=== PATIENT | male | born 2000 | race Caucasian/White ===

== ENCOUNTER 2020-11-23 11:26 | Emergency (ER) | payer MEDICAID ==
[~2020-11-23] VITALS: Ht 172.7 cm; Wt 54.4 kg
--- NOTE | 2020-11-23 11:27 | NUR ---
Patient BIBA BLS, transferred to bed 9. RN evaluating the patient at bedside.
[2020-11-23 11:28] VITALS: BP 132/84
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
--- NOTE | 2020-11-23 11:58 | NUR ---
Dr. Spencer at the bedside evaluating patient.
[2020-11-23] MEDS: CYCLOBENZAPRINE 10 MG TAB PO ONE (12:40)
[2020-11-23] MEDS: KETOROLAC 30 MG/ML VIAL IM ONE (12:40)
[2020-11-23] MEDS: ACETAMINOPHEN EXTRA STRENGTH 500 MG TAB PO ONE (12:40)
[2020-11-23] MEDS ORDERED: CYCL-654 PO (12:56)
[2020-11-23] MEDS ORDERED: IBUP-2213 PO (12:56)
[2020-11-23 13:11] VITALS: BP 132/84
--- NOTE | 2020-11-23 13:11 | NUR ---
Patient discharged with v/s stable. Written and verbal after care instructions given and explained. Patient alert, oriented and verbalized understanding of instructions. Ambulatory with steady gait. All questions addressed prior to discharge. ID band removed. Patient advised to follow up with PMD. Rx of cyclobenzaprine hcl, ibuprofen given. Patient educated on indication of medication including possible reaction and side effects. Opportunity to ask questions provided and answered.
[2020-11-24] MEDS ORDERED: ACET-10509 PO (22:24)
[2020-11-24] MEDS ORDERED: CYCL-711 PO (22:34)
== END 2020-11-23 13:11 | disposition home or self-care (01) ==
LOC: MED 11:26
DX: S50.312A Abrasion of left elbow, initial encounter (principal); S16.1XXA Strain of muscle, fascia and tendon at neck level, initial encounter; R51.9 Headache, unspecified; Z79.899 Other long term (current) drug therapy; V49.69XA Unspecified car occupant injured in collision with other motor vehicles in traffic accident, initial encounter; Y93.89 Activity, other specified; Y92.89 Other specified places as the place of occurrence of the external cause; Y99.8 Other external cause status
CPT/HCPCS: 96372; 99283; J1885

== ENCOUNTER 2020-11-24 20:09 | Emergency (ER) | payer MEDICAID ==
[~2020-11-24] VITALS: Ht 170.2 cm; Wt 55.3 kg
[~2020-11-24 20:09] MED LIST: CYCL-654 PO; IBUP-2213 PO
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
[2020-11-24 20:28] VITALS: BP 139/83
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
--- NOTE | 2020-11-24 20:46 | NUR ---
PT TAKEN TO CT
--- NOTE | 2020-11-24 20:57 | NUR ---
PT RETURN FROM CT
--- NOTE | 2020-11-24 21:09 | NUR ---
Dr. Frias examining patient.
[2020-11-24] MEDS ORDERED: KETOROLAC 30 MG/ML VIAL IM ONE (21:10)
[2020-11-24] MEDS ORDERED: BACITRACIN OINT 500 UNITS/GM PKT TP ONE (21:10)
--- NOTE | 2020-11-24 22:13 | NUR ---
WOUND CARE DONE, DRESSING IN PLACE.
[2020-11-24] MEDS ORDERED: ACET-10509 PO (22:24)
[2020-11-24] MEDS ORDERED: CYCL-711 PO (22:34)
--- NOTE | 2020-11-24 22:40 | NUR ---
Patient discharged with v/s stable. Written and verbal after care instructions given and explained. Patient alert, oriented and verbalized understanding of instructions. Ambulatory with steady gait. All questions addressed prior to discharge. ID band removed. Patient advised to follow up with PMD. Rx of ACETOMINOPHEN given. Patient educated on indication of medication including possible reaction and side effects. Opportunity to ask questions provided and answered.
[2020-11-24 22:42] VITALS: BP 128/86
== END 2020-11-24 22:40 | disposition home or self-care (01) ==
LOC: MED 20:09
DX: S06.0X0A Concussion without loss of consciousness, initial encounter (principal); S16.1XXA Strain of muscle, fascia and tendon at neck level, initial encounter; S50.312A Abrasion of left elbow, initial encounter; J45.909 Unspecified asthma, uncomplicated; Z79.899 Other long term (current) drug therapy; X58.XXXA Exposure to other specified factors, initial encounter; Y93.89 Activity, other specified; Y92.89 Other specified places as the place of occurrence of the external cause; Y99.8 Other external cause status
CPT/HCPCS: 70450; 71045; 72125; 72170; 73070; 96372; 99285; J1885

== ENCOUNTER 2022-08-20 23:14 | Emergency (ER) | payer OTHER ==
[~2022-08-20] VITALS: Ht 170.2 cm; Wt 59.0 kg
[~2022-08-20 23:14] MED LIST changes: +ACET-10509 PO; +CYCL-711 PO
[2022-08-20 23:19] VITALS: BP 120/88
--- NOTE | 2022-08-20 23:23 | NUR ---
PT OFFLOADED TO [facility]
[2022-08-20 23:36] VITALS: BP 136/84
--- NOTE | 2022-08-20 23:44 | NUR ---
Pt taken to RAD for imaging.
[2022-08-21] MEDS: KETOROLAC 15 MG/ML VIAL IM ONE (00:10)
[2022-08-21] MEDS: LIDOCAINE 5% 1 EA PATCH TP ONE (00:11)
[2022-08-21 00:41] LABS: BASOPHILS % (AUTO) 0.5 % (0.0-2.0); EOSINOPHILS # (AUTO) 0.1 K/uL (0-0.4); EOSINOPHILS % (AUTO) 0.7 % (0.0-4.0); HEMATOCRIT 40.4 % (36-52); HEMOGLOBIN 13.6 g/dL (12.0-18.0); LYMPHOCYTES # (AUTO) 1.9 K/uL (2.0-11.5); LYMPHOCYTES % (AUTO) 19.6 % (20.5-51.1); MEAN CORPUSCULAR HEMOGLOBIN 29 pg (27-31); MEAN CORPUSCULAR HGB CONC 34 g/dL (33-37); MEAN CORPUSCULAR VOLUME 86.4 fL (80-94); MONOCYTES # (AUTO) 0.7 K/uL (0.8-1.0); MONOCYTES % (AUTO) 7.4 % (1.7-9.3); NEUTROPHILS # (AUTO) 7.1 K/uL (1.8-7.7); NEUTROPHILS % (AUTO) 71.8 % (42.2-75.2); PLATELET COUNT (AUTO) 191 K/uL (140-450); RED BLOOD CELL COUNT(AUTO) 4.67 MIL/uL (4.20-6.10); RED CELL DISTRIBUTION WIDTH 13.3 % (11.6-13.7); WHITE BLOOD COUNT (AUTO) 9.9 K/uL (4.8-10.8)
[2022-08-21] MEDS: ACETAMINOPHEN EXTRA STRENGTH 500 MG TAB PO ONE (01:15)
[2022-08-21 01:19] LABS: ALBUMIN 4.3 g/dL (3.4-5.0); ANION GAP 14.5 (8-16); ASPARTATE AMINOTRANSFERASE 39 U/L (15-37); CARBON DIOXIDE 26.3 mmol/L (21-32); CHLORIDE 105 mmol/L (98-107); CREATININE 1.1 mg/dL (0.6-1.3); GFR ARICAN-AMERICAN 107 mL/min (>90); GLUCOSE 99 mg/dL (74-106); POTASSIUM 3.8 mmol/L (3.5-5.1); SODIUM SERUM 142 mmol/L (136-145); TOTAL BILIRUBIN 0.4 mg/dL (0.0-1.0); UREA NITROGEN, BLOOD 18 mg/dL (7-18)
[2022-08-21] MEDS ORDERED: IBUP-2213 PO (01:43)
[2022-08-21] MEDS ORDERED: LID5T TP (01:44)
[2022-08-21 02:03] VITALS: BP 140/75
--- NOTE | 2022-08-21 02:07 | NUR ---
Patient discharged with v/s stable by ermd. Written and verbal after care instructions given and explained. Patient verbalized understanding. Ambulatory with steady gait. All questions addressed prior to discharge. Advised to follow up with PMD.
[2022-08-21] MEDS ORDERED: HYDROcodone/APAP 5/325 MG 1 TAB TAB ONE (02:11)
[2022-08-21] MEDS: HYDROcodone/APAP 5/325 MG 1 TAB TAB PO ONE (02:11)
== END 2022-08-21 02:07 | disposition home or self-care (01) ==
LOC: MED 23:14
DX: S20.212A Contusion of left front wall of thorax, initial encounter (principal); J45.909 Unspecified asthma, uncomplicated; Z79.899 Other long term (current) drug therapy; Z79.1 Long term (current) use of non-steroidal anti-inflammatories (NSAID); V49.88XA Car occupant (driver) (passenger) injured in other specified transport accidents, initial encounter; Y93.89 Activity, other specified; Y92.410 Unspecified street and highway as the place of occurrence of the external cause; Y99.8 Other external cause status
CPT/HCPCS: 36415; 71045; 80053; 84484; 85025; 93005; 96372; 99285; J1885